=== PATIENT | female | born 1940 | race Caucasian/White ===

== ENCOUNTER 2016-10-08 10:54 | Observation (INO) | payer MEDICAID, MEDICARE ==
[~2016-10-08] VITALS: Ht 162.6 cm; Wt 86.1 kg
[2016-10-08] VITALS (10 sets, daily range): BP systolic 127–192; BP diastolic 60–81; PULSE 60–68; RESP 16–18; O2SAT 96–100
[~2016-10-08 10:54] MED LIST: ASA325 PO; ATRINH IH; CINN1POW MC; EZET10T PO; FISH; HYDR12.55 PO; LIP20 PO; MULT-1007 PO; NEX40C PO; OLP.1OP5 OP; TOPR25T PO; TRAM100T23 PO; Vitamin B12; coQ10; lidocaine patch; vitamin D
--- NOTE | 2016-10-08 11:25 | ED.REPORT ---
HPI-Chest Pain 40 and Over Date of Service Oct 08, 2016 ED Provider: Ai Wade Patient is a 76 year old female with a hx of HTN, hyperlipidemia, DM, and ASCVD who presents to the ED from urgent care complaining of increasing chest pain over the last 2 weeks. Last night she had increasing chest pain with radiation to her throat that felt similar to the chest pain she had before a previous bypass surgery. Associated symptoms include SOB upon exertion. She took nitro and Aspirin for her symptoms. She denies vomiting, extremity pain, diaphoresis, or any other symptoms. She reports increasing emotional stress over the last few weeks. She takes 2mg of Dexamethasone daily for arthritis. She also takes Lipitor, Losartan, Metoprolol, and Lasix. Nursing Notes Stated Complaint: CHEST COMPLAINTS Chief Complaint: Chest Pain Nursing Notes Reviewed: Yes Allergies: Coded Allergies: Penicillins (Verified Allergy, Mild, 03/30/15) Sulfa (Sulfonamide Antibiotics) (Verified Allergy, Unknown, RASH, 03/30/15 ) Bumble Bee (Verified Adverse Reaction, Unknown, Anaphylaxis, 03/30/15) Pt states that she did have an anaphlaytic response 1 time to bees. She has now had a desentization done and states she does not now have an allergy. Due to the original response of anaphlaytic reaction I am placing this on her allergy list. Scheduled Atorvastatin (Lipitor) 20 Mg Tablet 20 MG PO HS Esomeprazole Magnesium (Esomeprazole Magnesium) 40 Mg Capsule.dr 40 MG PO every other day Hydrochlorothiazide (Hydrochlorothiazide) 12.5 Mg Capsule 12.5 MG PO DAILY Multivitamin (Multivitamins) 1 Each Capsule 1 EACH PO DAILY Scheduled PRN ([lidocaine patch]) P PRN PRN Dextran 70/Hypromellose/Pf (Artificial Tears Drops) 1 Each Droperette 1 DROP BOTH_EYES BID PRN PRN For Eye Irritation Olopatadine (Patanol) 5 Ml Soln 1 GTT BOTH_EYES DAILY PRN PRN For Itching Miscellaneous Medications ([vitamin D]) ([coQ10]) General Time Seen by MD: 11:24 Chief Complaint Chest pain Hx Obtained From: Patient Arrived By: Walk-in Sudden in Onset?: No Onset Occurred: More than a week ago... (2 weeks) Symptom Duration: Intermittent Similar Sx Previous: Yes Risk Factors )( CAD Risk Stratification Diabetes mellitus Hyperlipidemia Hypertension Known CAD Risk factors N/A )( TAD Risk Stratification HypertensionNo High intensity wt lifting, No Risk factors reviewed )( PE Risk Stratification No , No , No Previous DVT, No Previous PE Risk factors reviewed Past Medical History Past Medical History 1. ASCVD with history of CABG. 2. Hypertension. 3. Obesity and hyperlipidemia. 4. Depression. 5. Hypothyroid on replacement. 6. 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 Type 2 diabetes mellitus, diet controlled. 8. GERD. 9. Chronic low back pain. 10. Peripheral neuropathy 11. Cervical cancer Reports: Hypertension Past Surgical History 1. Coronary artery bypass graft as above. 2. Appendectomy. 3. Right shoulder surgery. 4. Cervical spine fusion. Reports: Cataract surgery Smoking History Former Smoker Ambulatory Status Cane Review of Systems Respiratory: Reports: Dyspnea on exertion Cardiovascular: Reports: Chest pain GI: Denies: Vomiting Musculoskeletal: Denies: Extremity pain Skin: Denies Diaphoresis Complete sys rev & neg: except as marked. Physical Exam Initial Vital Signs Vital Signs (First) Date Time Temp Pulse Resp B/P Pulse Ox O2 Delivery O2 Flow Rate FiO2 10/08/16 10:58 36.8 66 17 189/66 100 Room Air Initial VS: Reviewed Head / Eyes: Atraumatic, Normocephalic Neurologic: Alert, Oriented, Nonfocal Psychiatric: Mood/affect normal, Behavior normal, Normal thought content General/Constitutional: Awake, Alert, Well appearing, Well developed Respiratory / Chest: Breath sounds NL, Breath sounds = bilat, No respiratory distress, No chest tenderness Chest pain not reproducible with palpation Cardiovascular: Heart rate NL, Regular rhythm, Heart sounds NL, Peripheral circulation NL Well perfused Abdomen: Soft, Non-tender Neck: No adenopathy Lower Extremity / Pelvis / MS: No edema Skin: No rash, Warm, Dry Interpretation & Diagnostics Lab Results Interpretation Result Diagram: 10/08/16 1118 10/08/16 1118 Test 10/08/16 11:18 White Blood Count 9.9th/mm3 (3.8-10.1) Red Blood Count 4.07mil/mm3 (3.90-5.20) Hemoglobin 14.2g/dL (12.0-15.6) Hematocrit 42.0% (35.0-46.0) Mean Corpuscular Volume 103.2fL (81-100) Mean Corpuscular Hemoglobin 34.9pg (27.0-35.0) Mean Corpuscular Hemoglobin Concent 33.8% (32.0-37.0) Red Cell Distribution Width 13.1% (12.3-15.4) Platelet Count 259bil/L (150-400) Neutrophils (%) (Auto) 55.2% (40-74) Lymphocytes (%) (Auto) 32.3% (14-46) Monocytes (%) (Auto) 9.5% (4-12) Eosinophils (%) (Auto) 2.5% (0-5) Basophils (%) (Auto) 0.3% (0-3) Prothrombin Time 9.9sec (8.1-12.5) Prothromb Time International Ratio 0.93ratio Activated Partial Thromboplast Time 22.4sec (22.8-33.0) Sodium Level 139mEq/L (134-144) Potassium Level 4.7mEq/L (3.5-5.2) Chloride Level 99mEq/L (97-108) Carbon Dioxide Level 23mmol/L (18-29) Blood Urea Nitrogen 21mg/dL (8-27) Creatinine 0.74mg/dL (0.57-1.00) Estimat Glomerular Filtration Rate 109mL/min (>59) Glucose Level 101mg/dL (60-99) Calcium Level 10.1mg/dL (8.5-10.1) Magnesium Level 2.1mg/dL (1.6-2.6) Total Bilirubin 0.5mg/dL (0.0-1.2) Aspartate Amino Transf (AST/SGOT) 14U/L (0-50) Alanine Aminotransferase (ALT/SGPT) 21U/L (0-32) Alkaline Phosphatase 46U/L (25-165) Troponin T 0.010ug/L (0.0-0.011) Total Protein 7.0g/dL (6.4-8.4) Albumin 4.4g/dL (3.4-5.0) ECG Interpretation ECG Interpretation: Sinus rate 61 Inferior infarct, old No acute changes Time: 11:15 Interpreted by: ED physician X-Ray Chest Interpretation Chest Xray Interpretation: IMPRESSION: No acute disease Dictated by: Jose Staton M.D. on 10/08/2016 at 12:03 Approved by: Jose Staton M.D. on 10/08/2016 at 13:11 View: Portable, 1 view Interpretation / Wet Read by: Interpret - Radiologist Re-Eval/Medical Decision Time of Eval: 12:28 Re-Evaluation/Progress Note: Discussed plan for admission. Patient understands and agrees with plan. All questions addressed at this time. Consultation : Referral / Consult Name: Merari Blas DO Consulted With: Hospitalist Call Returned at: 14:56 Loom Tuner: Will see patient, Agrees with eval, Agrees with plan, Accepts admit Note: Discussed pt's case. Accepts admit. Counseled Regarding: Diagnosis, Lab results, Need for admission Discharge & Departure Primary Impression: Unstable angina Disposition: ADMITTED TO HOSPITAL Discharge Condition All VS Reviewed: Yes Condition: Improved Referrals: Vane Blackwell MD (PCP) Scribe Attestation Portions of this note were transcribed by Braden Jones. I, Dr. Wade personally performed the history, physical exam and medical decision-making; I reviewed and confirmed the accuracy of the information in the transcribed note. Signed by: Braden Jones 10/08/16, 2177 copies to: Vane Blackwell MD, Shawna L MD Oct 08, 2016 11:25 BRADEN JONES Oct 08, 2016 11:33
[2016-10-08 11:34] LABS: BASOPHILS % (AUTO) 0.3 % (0-3); EOSINOPHILS % (AUTO) 2.5 % (0-5); MONOCYTES % (AUTO) 9.5 % (4-12); Mean Corpuscular Hemoglobin 34.9 pg (27.0-35.0); Mean Corpuscular Volume 103.2 fL (81-100); NEUTROPHILS % (AUTO) 55.2 % (40-74); Platelet Count 259 bil/L (150-400)
[2016-10-08] MEDS ORDERED: Heparin 5,000 Unit/mL Inj IVPUSH ONE (11:35)
[2016-10-08] MEDS ORDERED: Nitroglycerin 2% 1 Gm Ointment TOPICAL ONE (11:35)
[2016-10-08] MEDS ORDERED: Heparin 25K Unit/500mL 0.45 NS 25,000 UNIT in IV Premix 1 EACH IV ONE (11:35)
[2016-10-08] MEDS ORDERED: Hydrocortisone 50 mg/mL 2 mL Inj IVPUSH ONE (11:35)
[2016-10-08 11:52] LABS: INR 0.93 ratio
[2016-10-08 12:09] LABS: TROPONIN T 0.01 ug/L (0.0-0.011)
[2016-10-08 12:21] LABS: Magnesium 2.1 mg/dL (1.6-2.6)
--- NOTE | 2016-10-08 13:12 | DRSVH ---
PROCEDURE: X-RAY CHEST ONE VIEW, PORTABLE ([id number]) INDICATIONS: CHEST PAIN TECHNIQUE: One view of the chest was acquired. COMPARISON: [facility], CR, XR CHEST 1VW (PORTABLE), 03/20/2015, 22:52. FINDINGS: Surgical changes and devices: Sternotomy wires. Lungs and pleura: No pleural effusions or pneumothorax. Lungs are clear. Mediastinum: Mediastinal contours appear normal. Heart size is normal. Bones and chest wall: No suspicious bony lesions. Overlying soft tissues appear unremarkable. Ther e is left shoulder calcific tendinitis IMPRESSION: No acute disease Dictated by: Jose Staton M.D. on 10/08/2016 at 12:03 Approved by: Jose Staton M.D. on 10/08/2016 at 13:11
[2016-10-08] MEDS ORDERED: ATOR20TA PO (14:49)
[2016-10-08] MEDS ORDERED: ESOM40CA53 PO (14:50)
[2016-10-08] MEDS ORDERED: HYDR12.5 PO (14:51)
[2016-10-08] MEDS ORDERED: OLP.1OP5 BOTH_EYES (14:52)
[2016-10-08] MEDS ORDERED: MULT1CAP33 PO (14:52)
[2016-10-08] MEDS ORDERED: DEXT1DRO8 BOTH_EYES (14:53)
[2016-10-08] MEDS ORDERED: LIDO700A6 TP (15:01)
[2016-10-08] MEDS ORDERED: CHOL200025 PO (15:03)
[2016-10-08] MEDS ORDERED: UBID200C31 PO (15:03)
[2016-10-08] MEDS ORDERED: DICL100G26 TOPICAL (15:25)
[2016-10-08] MEDS ORDERED: Alum-Mag Hydrox-Simeth 30 mL Suspension PO PRN ×2 (15:25→16:25)
[2016-10-08] MEDS ORDERED: Ondansetron 2 mg/mL 2 mL Inj IVPUSH PRN ×2 (15:25→16:25)
[2016-10-08] MEDS ORDERED: AZEL137S11 NS (15:27)
[2016-10-08] MEDS ORDERED: DEX1 PO (15:27)
[2016-10-08] MEDS ORDERED: LOSA50TA37 PO (15:28)
[2016-10-08] MEDS ORDERED: GEMF600T3 PO (15:29)
[2016-10-08] MEDS ORDERED: METO-272 PO (15:29)
[2016-10-08] MEDS ORDERED: ASPI325T32 PO (15:30)
[2016-10-08] MEDS ORDERED: METO10TA3 PO (15:30)
[2016-10-08] MEDS ORDERED: CHOL10008 PO (15:31)
[2016-10-08] MEDS ORDERED: VITA1CAP16 PO (15:32)
[2016-10-08] MEDS ORDERED: ACET325T51 PO (15:32)
[2016-10-08] MEDS ORDERED: OMEP40CA36 PO (15:34)
[2016-10-08] MEDS ORDERED: FUR20 PO (15:51)
[2016-10-08] MEDS ORDERED: Polyethylene Glycol (PEG) 17 Gm Powder PO PRN (16:25)
--- NOTE | 2016-10-08 16:29 | NUR ---
admit pt admitted from ER. Heparin drip running at 1000 units/hr. pt states that she isn't having chest pain but some slight discomfort, denies SOB and other pain. pt is able to ambulate in the room with a cane. Son at bedside. waiting on orders
[2016-10-08] MEDS ORDERED: [UNRECOGNIZED DRUG - OTHER] PO SCH (16:30)
[2016-10-08] MEDS ORDERED: VIT C NO 3 PO SCH (16:30)
[2016-10-08] MEDS ORDERED: VITAMIN B COMPLEX PO SCH (16:30)
[2016-10-08] MEDS ORDERED: VITAMIN C PO SCH (16:30)
[2016-10-08] MEDS: Artificial Tears 15 mL Ophthalmic Solution BOTH_EYES SCH ×2 (16:40→21:51)
[2016-10-08] MEDS: Sodium Chloride LOK Flush 10 mL Syringe IVFLUSH SCH ×2 (16:58→21:52)
[2016-10-08] MEDS ORDERED: Heparin 25K Unit/500mL 0.45 NS 25,000 UNIT in IV Premix 1 EACH IV SCH (17:05)
[2016-10-08] MEDS ORDERED: Heparin 5,000 Unit/mL Inj IVPUSH PRN (17:05)
--- NOTE | 2016-10-08 17:17 | PCM.HPMED ---
Subjective Date of Service Oct 08, 2016 Primary Provider: Admitting Physician: Merari Blas DO Primary Care Physician: Vane Blackwell MD Attending Physician: Merari Blas DO Admit Status: From the Emergency Department Chief Complaint: Unstable angina History of Present Illness: This is a pleasant 76-year-old white female with Heart disease status post CABG , stents, hypertension, ASCVD, diabetes mellitus, arthritis with adrenal insufficiency for which she is not currently on medications is presenting with complaints of ongoing constant chest pain for 2 weeks that is relieved with nitroglycerin's sublingual. She states that she had a stress test once in the past and did not like it and she will not do it again. In 2003 is when she started having heart problems she says that her pain is under the clavicle also over the anterior chest wall that is like pressure is constant in nature and worse with activity, mild dyspnea, nitroglycerin help at home as well as in the ER. She took it 325 mg aspirin this a.m. because he noticed that she was hypertensive. She has some neck pain arm but no numbness tingling over the fullface R art. She says that her legs are always numb. She is endorsing mild dyspnea currently she said that yesterday after she was very dyspneic and the pain was 10 out of 10 chest pain is 3-4 out of 10 currently. She did not take any pain medication. She denies nausea vomiting no diarrhea no abdominal pain she does have a little bit of a headache and has chronic history of acid reflux she did take her acid reflux medication last night but she says the current level of pain is different is across both sides of chest. She is also known endorsing extensive family history of heart disease that includes mom brother and son both sons. She says that she has seen Dr. Singh years ago has seen av now once in Dr. Baxter's office and has not gone back for a couple of years she said that she has not done much in terms of echo on last echo was in 2011 that was normal. In the ER she had EKG sinus rhythm should only work old infarct lab work is essentially unremarkable throat was negative chest x-ray was nonacute probe was negative blood pressures were elevated she was given Solu-Cortef 100 mg IV push and also on Nitropaste. She has put on heparin drip for unstable angina and is admitted to blue team for further management. Review of Systems: Gen.: No weight gain patient has not been having fevers and malaise Eyes: no visual disturbances or blurring vision HEENT: No nose/throat drainage, no pain in ears or throat, no hearing loss Lymph: No lymph nodes noted Cardiac: positive for chest pain, denies orthopnea, PND, palpitations , pedal edema or dyspnea on exertion Pulmonary: denies wheezing or bringing up of sputum worsening dyspnea and cough GI: No anorexia nausea vomiting blood or black in the stool : no dysuria hematuria urinary frequency or decrease in urine output Musculoskeletal: Denies Joint swelling no joint pain no new muscle aches or back pain Neuro: No syncope, seizures no loss of consciousness no new focal weakness, numbness or tingling Psychiatric: New new anxiety insomnia or depression Endocrine: No new heat or cold intolerances polyuria or polydipsia Hematology: No lymphadenopathy or easy bleeding or bruising noted skin: No new rashes, stasis dermatitis Complete review of systems performed, pertinent positives and negatives per history of present illness and as above, all other systems reviewed and are negative. Allergies Coded Allergies: Sulfa (Sulfonamide Antibiotics) (Verified Allergy, Severe, Anaphylaxis, ) amlodipine (Verified Allergy, Intermediate, 10/08/16) fluid retention Penicillins (Verified Allergy, Mild, Hives, 10/08/16) Bumble Bee (Verified Adverse Reaction, Unknown, Anaphylaxis, 03/30/15) Pt states that she did have an anaphlaytic response 1 time to bees. She has now had a desentization done and states she does not now have an allergy. Due to the original response of anaphlaytic reaction I am placing this on her allergy list. Home Medications Home medications include atorvastatin, S4 present, hydrochlorothiazide, multivitamin, lidocaine patch diclofenac gel, metoprolol, furosemide, losartan, metoclopramide, Reglan, dexamethasone, gemfibrozil PMH Remarkable for hypertension, hyperlipidemia, diabetes mellitus, ASCVD status post CABG and stents, cataracts,with adrenal insufficiency, GERD, chronic low back pain, peripheral neuropathy, cervical cancer, AAA Surgical History Remarkable for CABG, cataracts, appendectomy, stent placement, right shoulder surgery, cervical spine fusion Family History Never a smoker, nondrinker and no marijuana or drugs. She states the like pain meds Social History: The patient is single, , and has 6 children. She quit smoking several years ago. She has a wine on rare occasions and consumes about 1 cup of coffee daily. Social History Hx Alcohol Use: No Hx Substance Use: No Hx Tobacco Use: Yes (quit 20 years ago) Smoking Status: Former Smoker Additional Information Brother of lung cancer, complications at age 52. Her sister of complications related to diabetes and surgery at age 62. Her daughter from complications of colon cancer at age 33. Her father of lung cancer, complications at age 50. Exam Vital Signs Vital Sign - Last Date Time Temp Pulse Resp B/P Pulse Ox O2 Delivery O2 Flow Rate FiO2 10/08/16 16:35 64 10/08/16 15:50 36.4 18 192/81 98 Room Air Exam General: NAD, laying in bed HEENT: NCAT Eyes: Becker conjunctivae. No ptosis, PERRL Neck: No masses, trachea midline, no thyromegaly Lungs: CTA with normal respiratory effort, no crackles or wheezes CV: RRR, no murmurs/rubs/gallops, normal PMI GI: Soft, non-tender with no hepatosplenomegaly MSK: Normal gait and station, no digital cyanosis. Palpable tenderness under the clavicle Skin: Warm and dry. No rash, lesions or ulcers Psych: A&O X3, with appropriate affect Neuro: no focal deficits NEck: neg for JVD Lab and Diagnostics Result Diagram: 10/08/16 1118 10/08/16 1118 Assessment & Plan ASsessment #1 Unstable angina, POA Telemetry monitoring, nitroglycerin when necessary, remove Nitropaste from ER, morphine as needed for dyspnea and chest pain, Continue atorvastatin, metoprolol, losartan home meds Consider Cath Procedure tomorrow if called for, and will talk to cardiology Dr. Davidson Trend troponins Cont heparin drip from the ED #CAD chronic active --Continue home medications metoprolol, furosemide, losartan, improved status was attributed to atorvastatin # elevated blood pressure, poa -She takes hydrochlorothiazide, metoprolol, losartan at home she did take her a.m. meds --She received one-time dose of Solu-Cortef continue to monitor Cortef which may have caused spike in blood pressure --May initiate amlodipine 5 mg daily if need be Diabetes mellitus chronic active -- she is currently not on medications -- Continue to monitor A1c is ordered Arthritis chronic active --Dexamethasone 1 mg twice a day --Continue diclofenac gel --Lidoderm patch Hyperlipidemia: Chronic active --Continue atorvastatin Hypertension chronic active --continue medications as above Pain Evaluation: Adequate Pain Control VTE Prophylaxis: Other (patient is on heparin drip for unstable angina) Resuscitation Status: CPR: Attempt Resuscitation (patient does not want to be intubated or ventilated; alternate decision-maker is available at) Time spent 45 minutes Merari Blas DO Oct 08, 2016 17:17
[2016-10-08 17:54] LABS: TROPONIN T < 0.010 ug/L (0.0-0.011)
[2016-10-08 18:03] LABS: Creatine Kinase 57 U/L (21-215)
--- NOTE | 2016-10-08 18:08 | NUR ---
medications given early Dr Blas asked that the pt's evening blood pressure medications be given early.
[2016-10-08] MEDS: MeTOProlol XL 50 mg ER24 Tablet PO SCH (18:18)
--- NOTE | 2016-10-08 18:33 | NUR ---
leg cramps pt states that for the past few days her legs have been cramping and it feels like her "toes are dancing". pt states that she has been taking magnesium without relief.
[2016-10-08] MEDS ORDERED: AZELASTINE HCL 137 MCG NS SCH (20:30)
[2016-10-08] MEDS ORDERED: MeTOProlol XL 50 mg ER24 Tablet PO SCH ×2 (20:30)
--- NOTE | 2016-10-08 20:32 | NUR ---
Case Management: ATUL explained to patient at 2020, all questions answered. Signed original placed in chart, copy given to patient. "How Medicare Covers Self-Administered Drugs Given in Hospital Outpatient Settings" given to patient. Aimee Zendejas RN
[2016-10-09] VITALS (8 sets, daily range): BP systolic 120–180; BP diastolic 64–80; PULSE 57–68; RESP 16–18; O2SAT 94–98
[2016-10-09 00:09] LABS: Creatine Kinase 57 U/L (21-215)
--- NOTE | 2016-10-09 01:43 | NUR ---
allergy to amlodipine Pt reported that she had taken amlodipine to control her HTN before and had severe fluid retention to her LEs. Pt requested to have amlodipine added to her allergy list; med added to her allergy list. Report given to MARAH Carvalho around 23:45
--- NOTE | 2016-10-09 05:11 | NUR ---
Pain: Assumed care of this pt around 2344. Pt c/o back/leg pain 08/22, medication administered, ice pack applied to back; effective. Denied chest pain/pressure and SOB. Pt awake often throughout the night, states she has a difficult time sleeping while in the hospital. Pt pleasant and cooperative with care.
[2016-10-09] MEDS: Pantoprazole 40 mg ER24 Tablet PO SCH (06:46)
[2016-10-09] MEDS ORDERED: Non-Formulary Medication (Ubidecarenone (Coenzyme Q-10) 200 MG) PO SCH (08:30)
[2016-10-09] MEDS: Artificial Tears 15 mL Ophthalmic Solution BOTH_EYES SCH ×2 (08:30→20:12)
[2016-10-09] MEDS: MeTOProlol XL 50 mg ER24 Tablet PO SCH ×2 (08:32→20:11)
[2016-10-09] MEDS: Lidocaine Topical 5% Patch TOPICAL SCH (08:32)
[2016-10-09] MEDS: Sodium Chloride LOK Flush 10 mL Syringe IVFLUSH SCH ×3 (08:34→20:12)
--- NOTE | 2016-10-09 10:35 | NUR ---
Social Work- initial assessment/ readiness for discharge: Data:See initial assessment. Pt is a 76 y/o female who was admitted on 10/08/16 for unstable angina per H&P.Pt's insurance is [employer] and [facility] and PCP is Dr. Ankur Bay MD. EMR Reviewed. Pt's readmission score is 3. SW met with pt at bedside, SW role explained. Pt is alert and oriented x3. Pt resides at home alone in [place] where she remains independent with basic ADLS. Pt occasionally drives and does use cane at baseline. Pt has no HH or SNF history. Pt has no shelter care insurance or VA benefits. SW discussed DPOA/ advanced directive, pt confirms he has completed this. Pt states she has been struggling with transportation to appointments, SW discussed medicaid transport and provided pt with resources and also information on [facility]. Pt confirms that her family will provide transport home at discharge. SW provided phone number and plan on white board in room. No anticipated discharge needs. SW will continue to follow if needs arise. Assessment:Pt who is independent at baseline. Plan:Pt to discharge home when medically stable via POV. Information on Medicaid transport and [facility] have been provided. No anticipated discharge needs. SW will continue to follow if needs arise. NEIL Mena Addendum: 10/09/16 at 1040 by CHRIS TURNER SS Amended: Links added.
--- NOTE | 2016-10-09 11:50 | NUR ---
Took over patient care 11:45am 10/09/16
[2016-10-09] MEDS ORDERED: Isosorbide Mononitrate 30 mg ER24 Tablet PO SCH ×2 (14:10→18:00)
--- NOTE | 2016-10-09 14:42 | DRSVH ---
[facility] [address] [place] [address] Echocardiogram Report Name: DIRK QUICK PStudy Date: 10/09/2016 Height: 64 in Hospital Exam Location: [facility] Weight: 190 lb Gender: Female BSA: 1.9 m2 : 1940 Age: 76 yrs BP: 180/79 mmHg Reason For Study: Chest pain Performed By: Jordyn Rodriguez Referring Physician: ARIELLA MCKEON Interpretation Summary Technically difficult study. Definity contrast used for LV function assessment. 1) Normal left ventricular thickness, size, wall motion, and systolic function (EF 55-60%). 2) Normal lright ventricular size and function grossly. 3) No significant valvular abnormalities noted. 4) No pericardial effusion present. 5) Compared to the Echo done 01/16/2012, no significant change. Procedure: A two-dimensional transthoracic echocardiogram with color flow and Doppler was performed. The study quality was technically difficult. A contrast injection of Definity was performed to improve assessment of LV function. Comparison is made with the echocardiogram of 01/16/2012. The heart rate ranged between 57-62 bpm during the study. Left Ventricle: The left ventricle is normal in size. There is normal left ventricular wall thickness. The ejection fraction is estimated to be 55-60%. Left ventricular systolic function is normal without focal wall motion abnormalities. Right Ventricle: The right ventricle grossly appears normal in size with probable normal systolic function. Atria: The left atrium grossly appears normal in size. The right atrium grossly appears normal in size. The interatrial septum is intact with no evidence for an atrial septal defect. Mitral Valve: The mitral valve leaflets appear mildly thickened, but open well. There is mild mitral annular calcification. There is trace mitral regurgitation. Aortic Valve: The aortic valve is trileaflet. The aortic valve opens well. There is no aortic valve stenosis. No aortic regurgitation is present. Tricuspid Valve: The tricuspid valve is normal in structure and function. There is trace tricuspid regurgitation. The right ventricular systolic pressure is estimated at 24 mmHg assuming a right atrial pressure of 3 mm Hg. Pulmonic Valve: The pulmonic valve is normal in structure and function. There is a trace or physiologic amount of pulmonic regurgitation. Great Vessels: The aortic root is normal size. The ascending aorta is normal in size. The IVC is of normal diameter and collapses greater than 50% with a sniff. This suggests a low right atrial pressure of 3 mm Hg. Pericardium/ Pleura There is no pericardial effusion. There is an anterior echo-free space consistent with a fat pad. There is no pleural effusion. MMode/2D Measurements & Calculations LVIDd LVOT diam LV koo. diameter/BSA LV sys. diameter/BSA : 4.1 cm (cm/m^2): 2.1 (cm/m^2): 1.3 LVIDs Ao root diam : 2.5 cm FS: 39.6 %asc Aorta Diam IVSd : 0.8cm LVPWd : 1.0 cm Doppler Measurements & Calculations Ao V2 max: 122.3 cm/secMV E max jermaine MV E/A: 0.94 TR max jermaine Ao max P.0 mmHg : 82.3 cm/sec Med Peak E' Jermaine : 231.7 cm/sec Ao mean P.1 mmHg MV A max jermaine TR max PG LVOT Max Jermaine : 87.8 cm/sec E/E' med: 21.1 : 21.5 mmHg : 75.6 cm/sec Lat Peak E' Jermaine PA V2 max : 58.8 cm/sec GUZMAN(I,D): 2.7 cm E/E' lat: 17.8 PA mean PG sev ratio: 0.72 E/e' average : 0.77 mmHg MV dec time: 0.32 sec Ao V2 mean LV V1 max PG PA V2 mean : 83.6 cm/sec : 42.1 cm/sec Ao V2 VTI LV V1 VTI: 19.3 cmPA pr(Accel) : 19.9 mmHg GUZMAN(V,D): 2.3 cm2 GUZMAN indexed to BSA (cm^2/m^2): 1.4 Reading Physician:02:42 PM
[2016-10-10] VITALS (8 sets, daily range): BP systolic 100–192; BP diastolic 60–83; PULSE 55–72; RESP 16; O2SAT 93–96
--- NOTE | 2016-10-10 05:08 | NUR ---
Sleep/NOC Note: Pt requested sleep aid, MD contact and new order received for Melatonin; pt resting in bed with eyes closed. Pt denied pain, chest pain and SOB, pleasant and cooperative with care.
--- NOTE | 2016-10-10 05:50 | NUR ---
Chest Pain: Pt started having chest pain 10/22, radiating down left side of chest and up L side of neck. During this time, pt became nauseated and diaphoretic, stating she felt like she was having a difficult time swallowing. EKG showed SR HR 60's. BP elevated, systolic in the 190's at this time. One dose of nitro administered. Pt slowly improving, chest pain currently 3. Will recheck BP and continue to monitor. MD made aware, reviewed EKG.
[2016-10-10] MEDS: Pantoprazole 40 mg ER24 Tablet PO SCH (06:09)
[2016-10-10] MEDS: Sodium Chloride LOK Flush 10 mL Syringe IVFLUSH SCH ×2 (08:30→16:31)
[2016-10-10] MEDS: Lidocaine Topical 5% Patch TOPICAL SCH ×2 (08:30→16:08)
[2016-10-10] MEDS: Artificial Tears 15 mL Ophthalmic Solution BOTH_EYES SCH ×2 (08:30→20:30)
[2016-10-10] MEDS: Heparin 5,000 Unit/mL Inj SUBQ SCH ×2 (08:30→16:31)
[2016-10-10] MEDS: MeTOProlol XL 50 mg ER24 Tablet PO SCH ×2 (08:51→20:30)
[2016-10-10] MEDS: Isosorbide Mononitrate 30 mg ER24 Tablet PO SCH (08:51)
--- NOTE | 2016-10-10 13:47 | CONS ---
[address] [address] CARDIOLOGY INPATIENT CONSULTATION REPORT PATIENT: DIRK QUICK : 1940 MR#: [id number] ADMIT: 10/08/2016 JOB ID: [id number] DATE OF SERVICE: 10/10/2016 CARDIOLOGY CONSULTATION: HISTORY OF PRESENT ILLNESS: This is a very pleasant, 76-year-old with a history of coronary artery disease, status post percutaneous intervention to right coronary artery back in 1997, with status post two-vessel coronary artery bypass grafting around 2002, history of hypertension, hyperlipidemia, and diabetes previously treated by metformin and currently just diet managed. She was admitted here at [facility] on 10/08/2016 with chest pain. The patient tells me that since her CABG surgery which was done in the 2002 she has been experiencing periodically chest pain on and off. In 2009 she had a Lexiscan sestamibi done which was considered to be abnormal, but no high-risk ischemic burden. Back to that time she had a bad experience with Lexiscan and after that she was adamant when she needed it done again later again. The patient tells me that recently last two-three months she noted that her episodes of chest pain got worse, and especially the last two weeks. She has been getting chest pain with exertion mostly, although periodically she was getting also at rest. She describes it from the beginning as a sharp pain in the middle of her chest that later becomes heavy/pressure, radiating to her left arm and into her throat. She tells me that when she walks, she needs to stop several times to catch her breath, and at some point she develops the chest pain which gets better with rest and dissipates spontaneously or sometimes she may need nitroglycerin. One tablet of niitro is usually enough and the chest pain dissipates in 5 minutes or so. Recently she noticed that chest pain episodes got more frequent and worse. She tells me that she never went to see a doctor to address this problem; On Saturday on she woke up early in the morning with chest pain. Chest pain was much more intense than usual episodes. From the beginning it was sharp, and then it was heavy pressure in her chest radiating to her left arm and her throat to the point that she felt like she was choking. She also felt nauseated and clammy .She checked her blood pressure and it was elevated at 206/145 mmHg. She took aspirin 325 mg tablet and she called and went to [facility] office nearby where was her PCP and they gave her nitro which did not help much and they called the ambulance and she was brought to [facility] ER. Her chest pain subsided after three tablets of nitroglycerin, but it never totally dissipated. Since Saturday she has been experiencing on and off chest pain. She had another episode of severe chest pain today in the morning when she woke up and felt nauseous and clammy and later starting feeling intense chest pain the same quality as described above which got better after s/l nitro. Currently on presentation she is chest pain free. Also, periodically recently she has been feeling sometimes lightheaded and sometimes feeling palpitations. She denies symptoms of nocturnal pulmonary congestion. . Per medical records she had a percutaneous intervention to right coronary artery done in 1997. She had a two-vessel coronary bypass grafting done in 2002. All of this was done at [facility]. Again, per medical records, at some point she brought her cath films from her procedure in 1997 which showed a subtotally occluded mid RCA with complete resolution after stenting. Back at that time she did have ostial left main disease based on that cardiac catheterization. We do not have records of her CABG surgery, and so at this point I do not know what kind of graft she has there. SOCIAL HISTORY: She has a remote smoking history, a tobacco smoker of one pack a day for many years, and she quit 30 years ago. She denies alcohol use and recreational drug use. FAMILY HISTORY: Coronary artery disease with her father, who had a heart attack at age 60. REVIEW OF SYSTEMS: A 12-point of review of systems is negative except the ones listed in the HPI. PAST MEDICAL HISTORY: Remarkable for coronary artery disease, PCI in the past, CABG x2, hypertension, hyperlipidemia, diabetes mellitus, adrenal insufficiency, GERD. PAST SURGICAL HISTORY: Remarkable for CABG x2, cataract, appendectomy, coronary stent placement, right shoulder surgery, cervical spine fusions. PHYSICAL EXAMINATION: Vital signs: Blood pressure 153/72 mmHg, temperature 36.4 Celsius, pulse 63 beats per minute, respiratory rate 16 per minute, pulse oximetry 95% on room air. General: No acute distress. Lying comfortably in the bed, compliant, NAD. HEENT: Sclerae anicteric, mucous membranes moist. Neck: Supple, no thyromegaly. Lungs: Normal breathing sounds bilaterally. No crackles, no wheezing. Cardiovascular: Regular rate and rhythm. Normal S1, S2. No murmur appreciated. JVD is not elevated. Abdomen: Soft, nontender with palpation. Vascular: No carotid bruit. Skin: No rash. Extremities: No lower extremity edema. Neuro: Alert and oriented x3. No gross abnormalities. LABORATORY: From October 08, 2016: White blood cells 9.9, red blood cells 4.7, hemoglobin 14.2, hematocrit 42, platelets 259. Labs done October 10, 2016: Hemoglobin 15.4, hematocrit 46.9. Labs from October 10, 2016: Sodium 136, potassium 5.7, chloride 98, CO2 19, BUN 20, creatinine 0.75, glucose 117, calcium 10.4. Triglycerides 129, cholesterol 288, LDL 167, HDL 95. She had negative troponins. ECHO report from October 09, 2016: Normal left ventricular thickness, size, wall motion, and systolic function with an LVEF of 55% to 60%. Normal right ventricular size and function. No significant valvular abnormalities noted. No pericardial effusion present. Compared to the echo done on January 16, 2012, no significant changes were noted. EKG from 10/08/2016 showed sinus rhythm with HR 61 bpm, no ischemic changes and no significant changes comparing to her outpatient EKG from 07/27/2014. EKG from today 10/10/2016 at 5:30 am showed sinus rhythm with HR 61 no ischemic changes and no significant changes comparing to previous EKG. On telemetry: sinus rhythm in 60s-70s; she had two single episodes of second- degree AV block , Mobitz type 2, 2:1. The 1st episode was on October 09, 2016, at 3:24 a.m. morning and the other one was on 10/09/2016 at 23:28. ASSESSMENT: This is a 76-year-old lady with a history of coronary artery disease, percutaneous coronary intervention in the past, s/p CABG x2 in 2002, hypertension, hyperlipidemia, diabetes mellitus, admitted with worsening and more frequent episodes of chest pain, mostly exertional and sometimes at rest. Her troponins have been negative. On EKG so far no ischemic changes. Currently she is chest pain free. PLAN: # Angina - Her troponins were negative on admission. On EKG, no ischemic changes so far. Taking in mind that she has CAD with PCI in the past and CABG x2, would recommend to proceed with a nuclear stress test to reassess her CAD. She has a hard time walking fast so if she cannot walk on the treadmill, we will try to do a Lexiscan stress test. # Per telemetry she had two single episodes of second-degree AV block , Mobitz type 2, 2:1. The 1st episode was on October 09, 2016, at 3:24 a.m. morning and the other one was on 10/09/2016 at 23:28. Both of them happened at night likely while asleep. Woud recommend to keep an eye on it. Because she had just two single episodes of 2nd degree AV block which happened at night, she should be fine to proceed with Lexiscan stress test if she cannot walk on treadmill. This was discussed with Dr. Cabrera and Dr. Cruz. # CAD, s/p PCI to right coronary artery back in 1997, and status post two-vessel coronary artery bypass grafting around 2002. # Hypertension - she has been hypertensive. For better control of her hypertension, would recommend to switch her from metoprolol succinate to carvedilol and start on carvedilol 12.5 mg b.i.d. # Hyperlipidemia: I would recommend increasing the dose of her atorvastatin from 20 mg daily to 40 mg daily and see how she tolerates it. In the past she had some muscle pains she told me. I would recommend to discontinue her gemfibrozil at this point # She is slightly hyperkalemic. Her potassium level today is 5.7. She has normal kidney function with creatinine 0.75. She is not on potassium supplements. This slight hyperkalemia could be from hemolysis when blood was drawn; She is on losartan 50 mg b.i.d. I would recommend to decrease the dose to 75 mg daily and repeat BMP tomorrow am. The case was discussed with the electronic components assembler Dr. Cabrera, who agreed with this assessment and plan. [facility]PITALThomas
--- NOTE | 2016-10-10 18:30 | NUR ---
Day shift Patient refused morning medications this morning due to previous chest pain at 0500 and the possibility of cardiology coming for consult. Patient was administered Imdur and Metoprolol per and all other medications held. Patient was ordered NM stress test, but unable to perform per NM due to Imdur administered. Patient will have NM stress test in AM. Patient was informed she will be NPO at midnight and no caffeine.
--- NOTE | 2016-10-10 23:23 | PCM.PNMED ---
Subjective Date of Service Oct 09, 2016 Subjective pAin has resolved, did not sleep well. No other concerns Exam Vital Signs Vital Sign - Last Date Time Temp Pulse Resp B/P Pulse Ox O2 Delivery O2 Flow Rate FiO2 10/09/16 05:14 36.6 59 18 153/80 97 Room Air Intake and Output 10/08/16 10/08/16 10/09/16 Cumulative From/Thru 15:00 23:00 07:00 10/08/16 10:58 - 10/08/16 18:13 Intake Total 400 ml 400 ml Output Total 500 ml 500 ml Balance -100 ml -100 ml Intake Oral 400 ml 400 ml Output Urine Total 500 ml 500 ml Exam General: NAD, laying in bed HEENT: NCAT Eyes: [place] conjunctivae. No ptosis, PERRL Neck: No masses, trachea midline, no thyromegaly Lungs: CTA with normal respiratory effort, no crackles or wheezes CV: RRR, no murmurs/rubs/gallops, normal PMI GI: Soft, non-tender with no hepatosplenomegaly MSK: Normal gait and station, no digital cyanosis. Palpable tenderness under the clavicle Skin: Warm and dry. No rash, lesions or ulcers Psych: A&O X3, with appropriate affect Neuro: no focal deficits NEck: neg for JVD IVs and Medications IV Fluids None Medications Reviewed: Medications were reviewed in detail Lab and Diagnostics Laboratory Tests Test 10/10/16 05:40 10/10/16 05:45 Hemoglobin 15.4g/dL (12.0-15.6) Hematocrit 46.9% (35.0-46.0) Activated Partial Thromboplast Time 95.6sec (22.8-33.0) Sodium Level 136mEq/L (134-144) Potassium Level 5.7mEq/L (3.5-5.2) Chloride Level 98mEq/L (97-108) Carbon Dioxide Level 19mmol/L (18-29) Blood Urea Nitrogen 20mg/dL (8-27) Creatinine 0.75mg/dL (0.57-1.00) Estimat Glomerular Filtration Rate 107mL/min (>59) Glucose Level 117mg/dL (60-99) Calcium Level 10.4mg/dL (8.5-10.1) Result Diagram: 10/08/16 1118 10/08/16 1118 Cardiac Echo Impressions Echocardiogram Report Interpretation Summary Technically difficult study. Definity contrast used for LV function assessment. 1) Normal left ventricular thickness, size, wall motion, and systolic function (EF 55-60%). 2) Normal lright ventricular size and function grossly. 3) No significant valvular abnormalities noted. 4) No pericardial effusion present. 5) Compared to the Echo done 01/16/2012, no significant change. Reading Physician:02:42 PM Assessment & Plan ASsessment #1 Unstable angina, POA --Telemetry monitoring, nitroglycerin when necessary, remove Nitropaste from ER , morphine as needed for dyspnea and chest pain, --Trend troponins: neg --Cont heparin drip from the ED: Plan to d/c in the am Dr. Cabrera feels she can d/c home after medication adjustment. Disocntiued heparin drip 10/10, started heparin SQ -- Patient tells me Dr. Walter is her welt sewer, was not happy with Dr. Becerra, but when Ic alled the clinic, Dr. Walter stated he has not seen pt in 5 yrs, Dr. Becerra is still pt's welt sewer. -- Patient had an overnight episode of anginal pain, needed Nitro. Dr. Cabrera has seen the pt. His PA dictated a note. Pt agrees for a nuclear stress test tomorrow am, -- Discontinued aldactone, though it worked for her she needs better anginal prophylaxis. Started her on Imdur 30 mg ER. 10/10. Changed atorvastatin, losartan doses as recommended by cardiology. Switched her to coreg from metoprolol #CAD chronic active --Continue home medications furosemide, losartan, atorvastatin -- Coreg in stead of metoprolol -- changed losartan dosing, changed statin dosing # elevated blood pressure, poa -She takes hydrochlorothiazide, metoprolol, losartan at home she did take her a.m. meds --She received one-time dose of Solu-Cortef continue to monitor Cortef which may have caused spike in blood pressure -- Started imdur. Diabetes mellitus chronic active -- she is currently not on medications -- Continue to monitor A1c is ordered: 6.6: Conservative therapy due to age and low A1C Arthritis chronic active --Dexamethasone 1 mg twice a day --Continue diclofenac gel --Lidoderm patch Hyperlipidemia: Chronic active --Continue atorvastatin Hypertension chronic active --continue medications as above Pain Evaluation: Adequate Pain Control VTE Prophylaxis: Other (patient is on heparin drip for unstable angina) Resuscitation Status: CPR: Attempt Resuscitation (patient does not want to be intubated or ventilated; alternate decision-maker is available at) Time spent 45 min Merari Blas DO Oct 09, 2016 05:49
[2016-10-11] VITALS (8 sets, daily range): BP systolic 100–173; BP diastolic 59–80; PULSE 64–84; RESP 16–20; O2SAT 95–98
[2016-10-11] MEDS: Heparin 5,000 Unit/mL Inj SUBQ SCH ×3 (00:41→17:09)
[2016-10-11] MEDS: Sodium Chloride LOK Flush 10 mL Syringe IVFLUSH SCH ×3 (00:41→17:09)
[2016-10-11] MEDS: Pantoprazole 40 mg ER24 Tablet PO SCH (07:41)
[2016-10-11] MEDS: Lidocaine Topical 5% Patch TOPICAL SCH ×2 (08:30→20:03)
[2016-10-11] MEDS: Artificial Tears 15 mL Ophthalmic Solution BOTH_EYES SCH ×2 (08:30→20:14)
[2016-10-11] MEDS: Isosorbide Mononitrate 30 mg ER24 Tablet PO SCH (10:29)
--- NOTE | 2016-10-11 14:22 | DRSVH ---
PROCEDURE PERFORMED: PHARMACOLOGICAL STRESS AND REST MYOCARDIAL PERFUSION IMAGING STUDY WITH GATING TO ASSESS EJECTION FRACTION AND REGIONAL WALL MOTION. RADIOPHARMACEUTICAL: Stress: 31.9 mCi of technetium-99 tetrofosmin. Rest: 10.88 mCi of technetium -99 tetrofosmin. INDICATIONS: The patient is a 76-year-old female admitted with persistent chest discomfort with nega tive cardiac enzymes. COMPARISON: NM, MYOCARD PERF SPECT MULT, MIBI, 05/27/2009, 11:51. PHARMACOLOGIC STRESS: Per protocol, 0.4 mg of Lexiscan was infused with a normal hemodynamic respons e with development of dyspnea, nausea, lightheadedness and cramping, but no chest pain. Her resting ECG is normal although with low voltage QRS. There are no significant ST segment shifts or arrhythmi as with stress. She was given 100 mg of aminophylline with relief of her symptoms. FINDINGS: 1. Raw Data: There is fair myocardial tracer uptake with mild breast shadows noted. There is no vi sual evidence for increased lung uptake or post-stress dilatation. 2. Quantitative Gated SPECT Imaging: Post-stress ejection fraction is calculated to be 100%, an obv ious over-estimate because of relatively small left ventricular volumes but the left ventricle appear s small and hyperdynamic without any focal wall motion abnormality. Resting ejection fraction is kathleen culated to be 99% with an end diastolic volume of 28 mL. 3. Myocardial Perfusion Imaging: Post-stress supine images show a fairly normal myocardial perfusio n pattern without any obvious perfusion defects. The patient was unable to lie prone. The resting i mages show a similar perfusion pattern without any clear areas of improvement. CONCLUSION: 1. Normal myocardial perfusion study. 2. No evidence for significant myocardial ischemia or previous myocardial infarction. 3. Hyperdynamic left ventricular systolic function with small left ventricular volumes, consider a v olume starved ventricle. No focal wall motion abnormalities identified. 4. No angina or ECG evidence of ischemia with pharmacologic stress. 5. Compared to the previous myocardial perfusion imaging study from 05/27/2009, the previous perfusi on defects are no longer evident, now with a more uniform pattern of tracer activity. Her previous e jection fraction was 80% with an end diastolic volume of 45 mL, again suggesting a possible volume-st arved left ventricle. Dictated by: Grupo Rogers M.D. on 10/11/2016 at 11:39 Transcribed by: ROB on 10/11/2016 at 17:21 Approved by: Grupo Rogers M.D. on 10/12/2016 at 15:57 Cc: Roberth Cabrera MD
--- NOTE | 2016-10-11 18:16 | NUR ---
GI Upset Pt refused some morning meds this AM, requested to wait till for Stress to test to be finished and will take with food to reduce irritation. Pt later reported in late afternoon having some stomach upset for gastroparesis. Reports that usually takes Reglan when at home. Administered PRN Reglan. Pt reports stomach is feeling better. Pt also given suppository for constipation, reports that spincter gets tightened/swollen and suppository will relax and her initiate a BM. Pt had success with BM later this shift.
[2016-10-11] MEDS: 0.9% Sodium Chloride 1,000 ML IV SCH ×2 (19:15→19:51)
[2016-10-11] MEDS: BusPIRone 15 mg Dividose Tablet PO SCH (20:15)
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
[2016-10-12 00:13] VITALS: BP 146/74; PULSE 69; RESP 18; O2SAT 96
[2016-10-12] MEDS: Heparin 5,000 Unit/mL Inj SUBQ SCH ×2 (00:30→07:50)
[2016-10-12] MEDS: Sodium Chloride LOK Flush 10 mL Syringe IVFLUSH SCH ×2 (02:42→07:50)
[2016-10-12 05:21] VITALS: BP 162/77; PULSE 57; RESP 18; O2SAT 97
[2016-10-12 05:34] VITALS: PULSE 61
--- NOTE | 2016-10-12 05:41 | NUR ---
Sleep PT slept much better last night, stated the Buspar really helped with her anxiety.
[2016-10-12] MEDS ORDERED: CYCL10TA9 PO (05:52)
[2016-10-12] MEDS ORDERED: LOSA25TA2 PO (05:53)
[2016-10-12] MEDS ORDERED: ATOR10TA66 PO (05:53)
[2016-10-12] MEDS ORDERED: CARV12.52 PO (05:53)
[2016-10-12] MEDS ORDERED: ISOS30TA4 PO (05:53)
[2016-10-12] MEDS ORDERED: BUSP15TA3 PO (05:53)
[2016-10-12] MEDS ORDERED: NITR0.4T SL (05:53)
[2016-10-12] MEDS: Pantoprazole 40 mg ER24 Tablet PO SCH (07:25)
[2016-10-12] MEDS: Isosorbide Mononitrate 30 mg ER24 Tablet PO SCH (07:48)
[2016-10-12] MEDS: BusPIRone 15 mg Dividose Tablet PO SCH (07:49)
[2016-10-12 08:00] VITALS: PULSE 73
[2016-10-12 08:48] VITALS: BP 130/72; PULSE 70; RESP 19; O2SAT 95
[2016-10-12] MEDS: Artificial Tears 15 mL Ophthalmic Solution BOTH_EYES SCH (10:26)
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
--- NOTE | 2016-10-12 10:50 | NUR ---
Social Work: Discharge Data: Pt is on day 4 of hospitalization. EMR reviewed. D/C orders are in. Pt discussed in rounds. MD states no d/c planning needs. REGISTERED CLIENT ASSOCIATE will continue to follow if needs arise. Assessment: Pt who is independent at baseline. Plan: Pt will d/c home via POV today. states no d/c planning needs. REGISTERED CLIENT ASSOCIATE will continue to follow if needs arise. NEIL Jimenez
--- NOTE | 2016-10-12 13:10 | NUR ---
Discharge Reviewed discharge paperwork, care notes and medications with pt - disclaimer signed. IV DCd intact, Tele removed, all belongings with pt. Pt denies pain and SOB. Declined escort out of unit, walking out on foot with son. Strong and steady on feet.
== END 2016-10-12 13:10 | disposition home or self-care (01) ==
LOC: SED 10:54 → MPC 14:46
PROVIDERS: ADMIT Family Medicine; ATTEND Family Medicine
DX: I25.110 Atherosclerotic heart disease of native coronary artery with unstable angina pectoris (principal); I10 Essential (primary) hypertension; F41.9 Anxiety disorder, unspecified; M79.1 Myalgia; E87.5 Hyperkalemia; E11.9 Type 2 diabetes mellitus without complications; E78.5 Hyperlipidemia, unspecified; M19.90 Unspecified osteoarthritis, unspecified site; E27.40 Unspecified adrenocortical insufficiency; K21.9 Gastro-esophageal reflux disease without esophagitis; M54.5 Low back pain; G62.9 Polyneuropathy, unspecified; F32.9 Major depressive disorder, single episode, unspecified; E03.9 Hypothyroidism, unspecified; E66.9 Obesity, unspecified; Z87.891 Personal history of nicotine dependence; Z95.5 Presence of coronary angioplasty implant and graft; Z95.1 Presence of aortocoronary bypass graft; Z79.52 Long term (current) use of systemic steroids; Z79.82 Long term (current) use of aspirin
CPT/HCPCS: 36415; 71010; 78452; 80048; 80053; 80061; 82550; 82553; 83036; 83735; 84132; 84484; 85014; 85018; 85025; 85610; 85730; 93005; 93017; 96374; 96375; 96376; 99285; A9502; C8929; G0378; J0280; J1644; J1720; J2785; J7030; Q9957